=== PATIENT | female | born 1995 | race Caucasian/White ===

== ENCOUNTER 2022-12-19 05:45 | Inpatient (IN) | payer MEDICAID, SELFPAY ==
[2022-12-19] VITALS (26 sets, daily range): BP systolic 102–134; BP diastolic 55–84; PULSE 62–93; RESP 16–18; TEMP 36.4–36.8; O2SAT 97–99; BMI 36.7
[2022-12-19] MEDS: dextrose 5%-lactated ringers 1,000 ML 125 ML IV (06:11)
[2022-12-19 06:17] LABS: Basophils # 0.1 10^3/uL (0.0-0.1); Basophils % 0.5 %; Eosinophils # 0.4 10^3/uL (0.0-0.8); Eosinophils % 2.4 %; Hematocrit 33.5 % (37.0-47.0); Hemoglobin 11.2 g/dL (11.5-15.3); Lymphocytes # 4.4 10^3/uL (0.8-4.8); Lymphocytes % 26.7 %; Mean Corpuscular HGB Conc 33.4 g/dL (30.0-36.0); Mean Corpuscular Hemoglobin 29.9 pg (28.0-34.0); Mean Corpuscular Volume 89.6 fl (81-99); Mean Platelet Volume 12.1 fL (7.4-10.4); Monocytes # 0.8 10^3/uL (0.2-0.9); Monocytes % 4.7 %; Neutrophils # 10.68 10^3/uL (1.8-7.7); Neutrophils % 65.2 %; Nucleated Red Blood Cells % 0 %; Platelet Count 392 10^3/cmm (130-400); Red Blood Count 3.74 10^6/uL (4.1-5.3); Red Cell Distribution Width 14.4 % (12.1-15.1); White Blood Count 16.4 10^3/uL (4.0-10.0)
[2022-12-19 06:28] LABS: Amphetamines Screen Urine Negative (Negative); Barbiturates Screen Urine Negative (Negative); Benzodiazepines Screen Urine Negative (Negative); Cocaine Screen Urine Negative (Negative); Opiate Screen Urine Negative (Negative); PCP Screen Urine Negative (Negative); THC Screen Urine Positive (Negative)
[2022-12-19 07:04] LABS: Slide Review Slide Review Perform
--- NOTE | 2022-12-19 08:24 | PM.OBGYHP ---
Providers/Chief Complaint Admitting Physician: Dr. 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 Patient has not had any complications during her . She has obtained adequate care records from previous provider showed normal labs. GBS was negative. Patient has no concerns today. Present Details : 4 Para: 3 Labs Rubella: Immune RPR: Negative GBS: Negative HBsAG: Negative Review of Systems General: Reports: 10 or more systems reviewed and unremarkable except in HPI and below Narrative: Patient feels movement, denies loss of fluid vaginal bleeding, or contractions. Vitals/I&O/Wt Last Vital Signs Temp 98.2 F 12/19/22 05:53 Pulse 74 12/19/22 08:08 Resp 17 12/19/22 07:22 BP 103/55 12/19/22 08:08 O2 Del Method Room Air 12/19/22 05:49 12/18/22 12/19/22 12/19/22 22:59 06:59 14:59 Intake Total 0.25 / 0.25 3.75 / 3.75 Balance 0.25 / 0.25 3.75 / 3.75 Weight last 48 hrs Weight 91.081 kg Physical Exam Const: COMMON NORMALS: no acute distress and healthy appearing HENMT: COMMON NORMALS: normocephalic and moist oral mucous membranes Chest: COMMONS NORMALS: normal inspection of the chest Resp: COMMON NORMALS: normal respiratory effort and No retractions Cardio: COMMON NORMALS: regular rate and regular rhythm GI: COMMON NORMALS: Normal to inspection, nondistended, normoactive bowel sounds present : COMMON NORMALS: Yes normal external appearance Extremity: COMMON NORMALS: normal to inspection and no clubbing, cyanosis or edema Neuro: COMMON NORMALS: moves all extremities Psych: COMMON NORMALS: mental status grossly normal Skin: COMMON NORMALS: no rashes or lesions noted Data 12/19/22 06:00 A&P Assessment and plan (1) Term : Plan to proceed with induction of labor with Pitocin. Proceed with routine labor management. Attestations Medical Necessity Statement*: Anticipate at least a 1 midnight stay. Coding Level of Care Code Acute Code for Chg Fwd Diagnoses Term Z34.90
[2022-12-19] MEDS: fentaNYL 50 mcg/mL INJ 2mL IVP (09:03)
[2022-12-19] MEDS: miSOPROStol 200 mcg Tablet 800 MCG PR (09:50)
--- NOTE | 2022-12-19 10:01 | PM.DELIVERY ---
Delivery Note: Date of delivery: December 19, 2022 Pre-delivery diagnoses: TIUP Post-delivery diagnoses: same, viable male Procedure: Op report anesthesia: None Estimated blood loss (mL): 400 Pre-Delivery Course: This is a 27 y/o that presented for IOL due to logistics. She was started on Pitocin and quickly started to have contractions. AROM was performed AROM was performed around 815 with clear fluid. She then quickly progressed complete over the next 1.5 hours. Delivery: Once the patient was complete the patient proceeded to push with contractions and delivered a viable infant male without issues. Infant was placed on maternal stomach and after a brief delay cord was clamped and cut. Delivery of placenta occurred without incident. Continued bleeding was noted so 100 milligrams of Cytotec was given rectally. Review of the perineum did not demonstrate any significant tear. After the procedure all equipment was accounted for. Post-Delivery Status: Stable History History History 4 Term 4 Miscarriages/Ectopic 0 Living Children 4 A&P Assessment and plan (1) Vaginal delivery: Proceed with routine post care Coding Level of Care Code Acute Code for Chg Fwd Diagnoses Vaginal delivery O80
[2022-12-19] MEDS: acetaminophen 325 mg Tablet 650 MG PO (11:35)
[2022-12-19] MEDS: benzocaine-menthol 78 gm Canister 1 SPRAY TOPICAL (12:14)
[2022-12-19] MEDS: HYDROcodone-acetaminophen 5-325 mg Tablet PO (14:06)
[2022-12-19] MEDS: ibuprofen 800 mg tablet PO (18:14)
[2022-12-19 22:12] LABS: Hematocrit 31.1 % (37.0-47.0); Hemoglobin 10.4 g/dL (11.5-15.3); Mean Corpuscular HGB Conc 33.4 g/dL (30.0-36.0); Mean Corpuscular Hemoglobin 29.7 pg (28.0-34.0); Mean Corpuscular Volume 88.9 fl (81-99); Mean Platelet Volume 12.2 fL (7.4-10.4); Platelet Count 374 10^3/cmm (130-400); Red Cell Distribution Width 14.2 % (12.1-15.1); White Blood Count 21.2 10^3/uL (4.0-10.0)
[2022-12-20] MEDS: HYDROcodone-acetaminophen 5-325 mg Tablet PO (00:16)
--- NOTE | 2022-12-20 07:21 | PM.OBGYDC ---
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 Patient was started on Pitocin to initiate contractions. Patient proceeded into a normal contraction pattern. AROM was performed and within an hour and a half the patient was fully dilated and delivered a viable infant male vaginally without incident. Patient did receive 1 dose of Cytotec after delivery to help with bleeding. Patient had no tears that needed repaired in a care was unremarkable. Information Peripartum Data: Infant Delivery Method: Vaginal Laceration description: None Episiotomy description: None complications: none Physical Exam Const: COMMON NORMALS: no acute distress and healthy appearing HENMT: COMMON NORMALS: normocephalic and moist oral mucous membranes HEAD & SCALP: normocephalic Chest: COMMONS NORMALS: normal inspection of the chest Resp: COMMON NORMALS: normal respiratory effort and No retractions Cardio: COMMON NORMALS: regular rate and regular rhythm RATE: regular rate RHYTHM: regular rhythm GI: COMMON NORMALS: Normal to inspection, nondistended, normoactive bowel sounds present : COMMON NORMALS: Yes normal external appearance Extremity: COMMON NORMALS: normal to inspection and no clubbing, cyanosis or edema Neuro: COMMON NORMALS: moves all extremities Psych: COMMON NORMALS: mental status grossly normal Skin: COMMON NORMALS: no rashes or lesions noted GENERAL SKIN EXAM: no rashes or lesions noted History History History 4 Term 4 Miscarriages/Ectopic 0 Living Children 4 Discharge Data Studies Completed and Pending Laboratory Results WBC 21.2 10^3/uL (4.0-10.0) H 12/19/22 21:47 RBC 3.50 10^6/uL (4.1-5.3) L 12/19/22 21:47 Hgb 10.4 g/dL (11.5-15.3) L 12/19/22 21:47 Hct 31.1 % (37.0-47.0) L 12/19/22 21:47 MCV 88.9 fl (81-99) 12/19/22 21:47 MCH 29.7 pg (28.0-34.0) 12/19/22 21:47 MCHC 33.4 g/dL (30.0-36.0) 12/19/22 21:47 RDW 14.2 % (12.1-15.1) 12/19/22 21:47 Plt Count 374 10^3/cmm (130-400) 12/19/22 21:47 MPV 12.2 fL (7.4-10.4) H 12/19/22 21:47 Neut % (Auto) 65.2 % 12/19/22 06:00 Lymph % (Auto) 26.7 % 12/19/22 06:00 [place] % (Auto) 4.7 % 12/19/22 06:00 Eos % (Auto) 2.4 % 12/19/22 06:00 Baso % (Auto) 0.5 % 12/19/22 06:00 Neut # (Auto) 10.68 10^3/uL (1.8-7.7) H 12/19/22 06:00 Lymph # (Auto) 4.4 10^3/uL (0.8-4.8) 12/19/22 06:00 [place] # (Auto) 0.8 10^3/uL (0.2-0.9) 12/19/22 06:00 Eos # (Auto) 0.4 10^3/uL (0.0-0.8) 12/19/22 06:00 Baso # (Auto) 0.1 10^3/uL (0.0-0.1) 12/19/22 06:00 Nucleated RBC % (auto) 0 % 12/19/22 06:00 Nucleated RBCs # 0.0 /100WBC 12/19/22 06:00 Urine Opiates Screen Negative ng/mL (Negative) 12/19/22 06:00 Ur Barbiturates Screen Negative ng/mL (Negative) 12/19/22 06:00 Ur Phencyclidine Scrn Negative ng/mL (Negative) 12/19/22 06:00 Ur Amphetamines Screen Negative ng/mL (Negative) 12/19/22 06:00 U Benzodiazepines Scrn Negative ng/mL (Negative) 12/19/22 06:00 Urine Cocaine Screen Negative ng/mL (Negative) 12/19/22 06:00 U Marijuana (THC) Screen Positive ng/mL (Negative) H 12/19/22 06:00 Vitals Last Vital Signs Temp 97.6 F 12/19/22 16:45 Pulse 71 12/19/22 20:15 Resp 16 12/19/22 20:15 BP 125/59 12/19/22 20:15 Pulse Ox 97 12/19/22 20:15 O2 Del Method Room Air 12/19/22 20:15 Discharge Plan Discharge Patient Disposition: Home Condition: Stable Discharge Orders: Discharge Order (Routine); Ordered 12/20/22 Ordered By: Jasson Knox Referrals: Jasson Knox MD [Physician] - 6 Weeks Discharge Diet: Usual diet Discharge Activity: Limit activity as instructed Patient Instructions: Depression (DC), Bleeding (DC), Preeclampsia and Eclampsia After Delivery (GEN), Hemorrhage (DC), OB Discharge Report, OB Food/Drug Interaction Guide, OB Care at Home, Opioid Safety, OB Home Care, OB Proud Parent Packet, OB Vaginal Deliveries Discharge 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
[2022-12-20] MEDS: prenatal vitamin Capsule 1 CAP PO (08:34)
[2022-12-20] MEDS: ibuprofen 800 mg tablet PO (08:34)
[2022-12-20 10:15] VITALS: BP 135/76; PULSE 71; RESP 16; TEMP 36.7; O2SAT 98
== END 2022-12-20 10:20 | disposition home or self-care (01) | DRG 807 ==
LOC: OPOB 10:15 → OBGYN 10:16
PROVIDERS: Admitting Provider Family Medicine; Visit Provider Family Medicine
DX: O80 Encounter for full-term uncomplicated delivery (principal); Z37.0 Single live birth; Z3A.39 39 weeks gestation of pregnancy
CPT/HCPCS: 36415; 59025; 59409; 80306; 85025; 85027; 96374; J3010; J7040; J7121

== ENCOUNTER → 2024-05-05 08:33 | Outpatient (BNVA) | payer MEDICAID, SELFPAY | PROVIDERS: Visit Provider Nurse Practitioner Women's Health | DX: N92.6 Irregular menstruation, unspecified (principal) | CPT/HCPCS: 81025 ==

== ENCOUNTER 2024-05-06 17:17 | Emergency (ER) | payer MEDICAID, SELFPAY ==
[2024-05-06 17:25] VITALS: BP 129/89; PULSE 105; RESP 16; TEMP 36.8; O2SAT 97; BMI 29.0
[2024-05-06 17:44] LABS: Basophils # 0.1 10^3/uL (0.0-0.1); Basophils % 0.9 %; Eosinophils # 0.4 10^3/uL (0.0-0.8); Eosinophils % 2.9 %; Lymphocytes # 3.9 10^3/uL (0.8-4.8); Lymphocytes % 32.6 %; Mean Corpuscular HGB Conc 34.7 g/dL (30-55); Mean Corpuscular Hemoglobin 30.8 pg (27-33); Mean Platelet Volume 11.7 fL (7.4-10.4); Monocytes # 0.4 10^3/uL (0.2-0.9); Monocytes % 3.6 %; Neutrophils # 7.16 10^3/uL (1.8-7.7); Neutrophils % 59.7 %; Nucleated Red Blood Cells % 0 %; Platelet Count 320 10^3/cmm (157-399); Red Blood Count 4.83 10^6/uL (3.85-5.65); Red Cell Distribution Width 12.4 % (12.1-15.1); White Blood Count 11.99 10^3/uL (3.29-11.43)
--- NOTE | 2024-05-06 17:44 | ED_ITS ---
Documented by User: Tommie Mackey DO 05/07/24 05:54 HPI - 2 General: Chief complaint: Vaginal Bleeding Stated complaint: 6wks vaginal bleeding Time Seen by Provider: 05/06/24 17:36 History of Present Illness: 28-year-old female at approximatel y 5 to 6 weeks . She is complaining of vaginal bleeding. She also has some nausea and vomiting she associates with morning sickness. No fever sweats chills no dysuria urgency or frequency no diarrhea. Bleeding started within the last hour. Patient states she has not otherwise been sick she has had quite a bit of morning sickness so far with this but she is not having nausea or vomiting now. She has noticed blood mostly when she wipes she is not really needed to wear a pad since this began. She had told the nurse that they had told her she was 5 to 6 weeks along although she places her LMP sometime in early February. When I reviewed the note from the midlevel at the OB office they had calculated her LMP as March 22. Associated symptoms: Deny abdominal pain or dysuria Related Data Home Medications Medication Instructions Recorded Confirmed No Known Home Medications 05/05/24 05/05/24 Allergies Allergy/AdvReac Type Severity Reaction Status Date / Time No Known Allergies Allergy Unverified 05/05/24 13:14 Review of Systems 2 Const: Denies: fever(s) or chills Card: Denies: chest pain Resp: Denies: dyspnea GI: Denies: abdominal pain : Reports: vaginal bleeding; Denies: dysuria, urinary frequency or urinary urgency Musc: Denies: neck pain or back pain Skin/Breast: Denies: rash PFSH ED 2 PFSH: Medical History No pertinent past medical history neghx: htn,dm,thyroid,dvt/pe PCP: None Surgical History No pertinent past surgical history Family History Denies family history of Colon cancer Ovarian cancer Diabetes Heart disease Hyperlipidemia Breast cancer Hypertension Uterine cancer Thyroid disease Stroke Social History Smoking and tobacco/nicotine status: never used tobacco/nicotine Physical Exam 2 Const: COMMON NORMALS: no acute distress GENERAL APPEARANCE: cooperative and comfortable ORIENTATION/CONSCIOUSNESS: Yes awake, Yes oriented to person, Yes oriented to place and Yes oriented to time HENMT: COMMON NORMALS: normocephalic, atraumatic and hearing grossly normal bilaterally HEAD & SCALP: normocephalic and atraumatic Resp: COMMON NORMALS: normal respiratory effort, No retractions, No use of accessory muscles and clear to auscultation bilaterally AUSCULTATION: clear to auscultation bilaterally Cardio: COMMON NORMALS: regular rate, regular rhythm and No murmurs present (Cardio) RATE: regular rate RHYTHM: regular rhythm GI: COMMON NORMALS: Soft to palpation and No hepatosplenomegaly present A USCULTATION: Yes normoactive bowel sounds PALPATION: Yes Soft to palpation, No Tenderness to palpation present (GI), No Guarding due to palpation present (GI) and Yes No hepatosplenomegaly present Extremity: COMMON NORMALS: normal to inspection, capillary refill normal, no clubbing, cyanosis or edema, no calf tenderness and no pedal edema Neuro: SENSORIUM/ORIENTATION: Yes oriented to person, Yes oriented to place and Yes oriented to time Skin: COMMON NORMALS: no rashes or lesions noted GENERAL SKIN EXAM: no rashes or lesions noted Course 2 Vital Signs: Vital signs: Vital Signs Temperature 98.2 F 05/06/24 17:25 Pulse Rate 87 05/06/24 20:16 Respiratory Rate 16 05/06/24 20:16 Blood Pressure 108/69 05/06/24 20:16 Pulse Oximetry 97 05/06/24 20:16 Oxygen Delivery Me thod Room Air 05/06/24 19:34 MDM - OB/Uterine Contractions Medical Decision Making Care signed out to Dr. Wheeler at change of shift. See final notes for diagnosis and disposition. Patient presents emerged part with complaint of bleeding in . hCG is little over 10,000. Ultrasound shows gestational sac at 7 weeks but no pole or heart rate. Suspect threatened or incomplete versus blighted ovum. Discussed findings with patient. Patient to follow-up with [facility] for repeat hCG and further follow-up. Patient is Rh+ so will not need RhoGAM. Patient is otherwise stable upon discharge. Lab Data 05/06/24 17:33 Radiology Impressions Ultrasound 05/06/24 18:24 IMPRESSION: A gestational sac and yolk sac is seen within the uterus. No pole or heart rate seen at this time which may be due to early gestation. Recommend clinical correlation with beta HCG. Laboratory Results WBC 11.99 10^3/uL (3.29-11.43) H 05/06/24 17:33 RBC 4.83 10^6/uL (3.85-5.65) 05/06/24 17:33 Hgb 14.90 g/dL (11.27-16.99) 05/06/24 17:33 Hct 43.0 % (36-47) 05/06/24 17:33 MCV 89.0 fl (85-98) 05/06/24 17:33 MCH 30.8 pg (27-33) 05/06/24 17: MCHC 34.7 g/dL (30-55) 05/06/24 17:33 RDW 12.4 % (12.1-15.1) 05/06/24 17:33 Plt Count 320 10^3/cmm (157-399) 05/06/24 17:33 MPV 11.7 fL (7.4-10.4) H 05/06/24 17:33 Neut % (Auto) 59.7 % 05/06/24 17:33 Lymph % (Auto) 32.6 % 05/06/24 17:33 [place] % (Auto) 3.6 % 05/06/24 17:33 Eos % (Auto) 2.9 % 05/06/24 17:33 Baso % (Auto) 0.9 % 05/06/24 17:33 Neut # (Auto) 7.16 10^3/uL (1.8-7.7) 05/06/24 17:33 Lymph # (Auto) 3.9 10^3/uL (0.8-4.8) 05/06/24 17:33 [place] # (Auto) 0.4 10^3/uL (0.2-0.9) 05/06/24 17:33 Eos # (Auto) 0.4 10^3/uL (0.0-0.8) 05/06/24 17:33 Baso # (Auto) 0.1 10^3/uL (0.0-0.1) 05/06/24 17:33 Nucleated RBC % (auto) 0 % 05/06/24 17:33 Nucleated RBCs # 0.0 /100WBC 05/06/24 17:33 Ser , Semi-Qnt 99411.00 mIU/mL 05/06/24 17:33 Blood Type B Positive 05/06/24 17:33 Rho(D) Type Rh positive 05/06/24 17:33 Antibody Screen Negative 05/06/24 17:33 Discharge Plan Discharge Patient Disposition: Home Clinical Impression: Threatened Condition: Stable Prescriptions: No Action No Known Home Medications Discharge Orders: Discharge ED (Routine); Ordered 05/06/24 Ordered By: Ronald Wheeler Patient Instructions: Opioid Safety, Pain Management Activity Restrictions/Additional Instructions: Follow-up with [facility] in the next 48 hours for repeat hCG Coding Level of Care Code ED Prosthetic Dentist for Chg Fwd Documented by User: Ronald Wheeler MD 05/06/24 20:00 HPI - 2 General: Chief complaint: Vaginal Bleeding Stated complaint: 6wks vaginal bleeding Time Seen by Provider: 05/06/24 17:36 Related Data Home Medications Medication Instructions Recorded Confirmed No Known Home Medications 05/05/24 05/05/24 Allergies Allergy/AdvReac Type Severity Reaction Status Date / Time No Known Allergies Allergy Unverified 05/05/24 13:14 PFSH ED 2 PFSH: Medical History No pertinent past medical history neghx: htn,dm,thyroid,dvt/pe PCP: None Surgical History No pertinent past surgical history Family History Denies family history of Colon cancer Ovarian cancer Diabetes Heart disease Hyperlipidemia Breast cancer Hypertension Uterine cancer Thyroid disease Stroke Social History Smoking and tobacco/nicotine status: never used tobacco/nicotine Course 2 Vital Signs: Vital signs: Vital Signs Temperature 98.2 F 05/06/24 17:25 Pulse Rate 87 05/06/24 20:16 Respiratory Rate 16 05/06/24 20:16 Blood Pressure 108/69 05/06/24 20:16 Pulse Oximetry 97 05/06/24 20:16 Oxygen Delivery Me thod Room Air 05/06/24 19:34 MDM - OB/Uterine Contractions Medical Decision Making Patient presents emerged part with complaint of bleeding in . hCG is little over 10,000. Ultrasound shows gestational sac at 7 weeks but no pole or heart rate. Suspect threatened or incomplete versus blighted ovum. Discussed findings with patient. Patient to follow-up with [facility] for repeat hCG and further follow-up. Patient is Rh+ so will not need RhoGAM. Patient is otherwise stable upon discharge. Lab Data 05/06/24 17:33 Radiology Impressions Ultrasound 05/06/24 18:24 IMPRESSION: A gestational sac and yolk sac is seen within the uterus. No pole or heart rate seen at this time which may be due to early gestation. Recommend clinical correlation with beta HCG. Laboratory Results WBC 11.99 10^3/uL (3.29-11.43) H 05/06/24 17:33 RBC 4.83 10^6/uL (3.85-5.65) 05/06/24 17:33 Hgb 14.90 g/dL (11.27-16.99) 05/06/24 17:33 Hct 43.0 % (36-47) 05/06/24 17:33 MCV 89.0 fl (85-98) 05/06/24 17:33 MCH 30.8 pg (27-33) 05/06/24 17:33 MCHC 34.7 g/dL (30-55) 05/06/24 17:33 RDW 12.4 % (12.1-15.1) 05/06/24 17:33 Plt Count 320 10^3/cmm (157-399) 05/06/24 17:33 MPV 11.7 fL (7.4-10.4) H 05/06/24 17:33 Neut % (Auto) 59.7 % 05/06/24 17:33 Lymph % (Auto) 32.6 % 05/06/24 17:33 [place] % (Auto) 3.6 % 05/06/24 17:33 Eos % (Auto) 2.9 % 05/06/24 17:33 Baso % (Auto) 0.9 % 05/06/24 17:33 Neut # (Auto) 7.16 10^3/uL (1.8-7.7) 05/06/24 17:33 Lymph # (Auto) 3.9 10^3/uL (0.8-4.8) 05/06/24 17:33 [place] # (Auto) 0.4 10^3/uL (0.2-0.9) 05/06/24 17:33 Eos # (Auto) 0.4 10^3/uL (0.0-0.8) 05/06/24 17:33 Baso # (Auto) 0.1 10^3/uL (0.0-0.1) 05/06/24 17:33 Nucleated RBC % (auto) 0 % 05/06/24 17:33 Nucleated RBCs # 0.0 /100WBC 05/06/24 17:33 Ser , Semi-Qnt 10493.00 mIU/mL 05/06/24 17:33 Blood Type B Positive 05/06/24 17:33 Rho(D) Type Rh positive 05/06/24 17:33 Antibody Screen Negative 05/06/24 17:33 All radiology interpretation(s) finalized by discharge Discharge Plan Discharge Patient Disposition: Home Clinical Impression: Threatened Condition: Stable Prescriptions: No Action No Known Home Medications Discharge Orders: Discharge ED (Routine); Ordered 05/06/24 Ordered By: Ronald Wheeler Patient Instructions: Opioid Safety, Pain Management Activity Restrictions/Additional Instructions: Follow-up with [facility] in the next 48 hours for repeat hCG Coding Level of Care Code ED Prosthetic Dentist for Kelving Moises
[2024-05-06 18:13] VITALS: BP 111/67; PULSE 90; O2SAT 98
--- NOTE | 2024-05-06 18:24 | USR_ITS ---
PROCEDURE INFORMATION: Exam: US First Trimester, Transabdominal and US , Transvaginal Exam date and time: 05/06/2024 6:38 PM Age: 28 years old Clinical indication: Lmp or gestational age (in weeks): 12w 1 d by reported lmp of 02/11/2024; Antepartum complications; ; Patient HX: G5-p4-a0-l4 [place] [address] with vaginal bleeding x 1 hour. ; Additional info: Vaginal bleed LABS AND CLINICAL REPORTS: Choriogonadotropin in serum (Serum HCG): 25739 mIU/mL Last menstrual period start date: 02/11/2024 Gestational age (Established): 12 w 1 d Estimated due date (Established): 11/17/2024 TECHNIQUE: Imaging protocol: Real-time transabdominal obstetrical ultrasound of the maternal pelvis and a first trimester , less than 14 weeks 0 days, with image documentation. Transvaginal imaging was used for better evaluation of the fetus, adnexa, and/or cervix. COMPARISON: No relevant prior studies available. FINDINGS: GESTATION: Gestation: Intrauterine gestation is visualized. No pole is visualized. Yolk sac is visualized. Embryonic/ heart rate: Not seen at this time. Extra-embryonic membranes/Placenta: Unremarkable. No subchorionic bleed. Amniotic/Chorionic fluid: Amniotic and extra-amniotic fluid are normal for gestational age. BIOMETRY: Gestational age (AUA): 7 w 1 d Estimated due date (AUA): 12/22/2024 Mean sac diameter: 2.22 cm. MATERNAL: Uterus: Uterus measures 9.75 cm x 5.88 cm x 5.45 cm. Cervix: Endocervical canal is closed. Right ovary/adnexa: Right ovary measures 3.2 cm x 2.8 cm x 1.9 cm. Right ovarian volume is 9.1 mL. 1.3 cm corpus luteum cyst. Left ovary/adnexa: Left ovary measures 2.3 cm x 3 cm x 1.7 cm. Left ovarian volume is 6.1 mL. Intraperitoneal space: No intraperitoneal free fluid. US/US OB <= 14 weeks fetus [id number] IMPRESSION: A gestational sac and yolk sac is seen within the uterus. No pole or heart rate seen at this time which may be due to early gestation. Recommend clinical correlation with beta HCG.
[2024-05-06 19:15] VITALS: BP 104/65; PULSE 97; RESP 16; O2SAT 85
[2024-05-06 19:34] VITALS: PULSE 81; RESP 16; O2SAT 95
[2024-05-06 20:00] VITALS: BP 108/68; PULSE 85; RESP 15; O2SAT 97
[2024-05-06 20:16] VITALS: BP 108/69; PULSE 87; RESP 16; O2SAT 97
== END 2024-05-06 20:17 | disposition home or self-care (01) ==
PROVIDERS: Emergency Medicine; Emergency Provider Emergency Medicine
DX: O20.0 Threatened abortion (principal); Z3A.01 Less than 8 weeks gestation of pregnancy
CPT/HCPCS: 36415; 76801; 84702; 85025; 86850; 86900; 99284

== ENCOUNTER 2024-05-09 08:35 | Day surgery (SDC) | payer MEDICAID, SELFPAY ==
[2024-05-09] VITALS (11 sets, daily range): BP systolic 90–129; BP diastolic 52–72; PULSE 69–100; RESP 11–20; TEMP 36.4–36.6; O2SAT 97–100; BMI 28.7
--- NOTE | 2024-05-09 08:59 | ED_ITS ---
HPI - General Adult 2 General: Chief complaint: Vaginal Bleeding Stated complaint: Heavy Vaginal bleeding Time Seen by Provider: 05/09/24 08:43 Source: patient Mode of arrival: ambulatory Limitations: no limitations History of Present Illness: 28-year-old female who currently pregnan t she is seen here 3 days ago and was diagnosed with widely low-lying versus unlikeliness. She states she started having bleeding last night with heavy bleeding this morning and passing clots she been having some abdominal cramping she denies any lightheadedness denies any fevers. Associated symptoms: Deny chest pain, dyspnea, headache(s), nausea, rash or vomiting Related Data Home Medications Medication Instructions Recorded Confirmed No Known Home Medications 05/05/24 05/05/24 Allergies Allergy/AdvReac Type Severity Reaction Status Date / Time No Known Allergies Allergy Verified 05/09/24 08:49 Review of Systems 2 Const: Denies: fever(s), chills, body aches or change in appetite ENMT: Denies: throat pain or dental pain Card: Denies: chest pain Resp: Denies: dyspnea GI: Denies: abdominal pain, nausea, vomiting or diarrhea : Reports: vaginal bleeding; Denies: dysuria Musc: Denies: neck pain or back pain Skin/Breast: Denies: rash Neuro: Denies: headache(s) PFSH ED 2 PFSH: Medical History No pertinent past medical history neghx: htn,dm,thyroid,dvt/pe PCP: None Surgical History No pertinent past surgical history Family History Denies family history of Colon cancer Ovarian cancer Diabetes Heart disease Hyperlipidemia Breast cancer Hypertension Uterine cancer Thyroid disease Stroke Social History Smoking and tobacco/nicotine status: never used tobacco/nicotine Physical Exam 2 Const: COMMON NORMALS: no acute distress, patient oriented x3 and healthy appearing HENMT: COMMON NORMALS: normocephalic and atraumatic HEAD & SCALP: n ormocephalic and atraumatic Eye: COMMON NORMALS: Equal, round and reactive pupils present and EOMs intact bilaterally PUPIL: Yes Equal, round and reactive pupils present Neck/C-Spine: COMMON NORMALS: full ROM and supple Chest: COMMONS NORMALS: normal inspection of the chest Resp: COMMON NORMALS: normal respiratory effort Cardio: COMMON NORMALS: regular rate, regular rhythm and No murmurs present (Cardio) RATE: regular rate RHYTHM: regular rhythm GI: COMMON NORMALS: Normal to inspection, nondistended, normoactive bowel sounds present, Soft to palpation, non-tender and no masses PALPATION: Yes Soft to palpation : OTHER: Multiple clots on vaginal bleeding Extremity: COMMON NORMALS: normal to inspection and full ROM Neuro: COMMON NORMALS: patient oriented x3, moves all extremities and no focal motor deficits Psych: COMMON NORMALS: mental status grossly normal, Normal thought process present and cooperative THOUGHT PROCESS: Normal thought process present Skin: COMMON NORMALS: no rashes or lesions noted and no wounds GENERAL SKIN EXAM: no rashes or lesions noted Course 2 Vital Signs: Vital signs: Vital Signs Pulse Rate 100 05/09/24 08:49 Respiratory Rate 18 05/09/24 08:49 Blood Pressure 129/72 05/09/24 08:49 Pulse Oximetry 98 05/09/24 08:49 [facility] - General Adult Medical Decision Making Patient presents female with a miscarriage she is continuing heavy bleeding even after pulling clots from the cervix and given her vasopressors daughter spoke to [facility] Dr. Power who is taking patient for D&C. Medical Records I reviewed the patient's medical records. Lab Data I reviewed the patient's lab results. 05/09/24 11:10 Laboratory Results WBC 10.52 10^3/uL (3.29-11.43) 05/09/24 09:04 RBC 3.89 10^6/uL (3.85-5.65) 05/09/24 09:04 Hgb 10.70 g/dL (11.27-16.99) L 05/09/24 11:10 Hct 31.6 % (36-47) L 05/09/24 11:10 MCV 89.2 fl (85-98) 05/09/24 09:04 MCH 30.6 pg (27-33) 05/09/24 09:04 MCHC 34.3 g/dL (30-55) 05/09/24 09:04 RDW 12.5 % (12.1-15.1) 05/09/24 09:04 Plt Count 260 10^3/cmm (157-399) 05/09/24 09:04 MPV 11.8 fL (7.4-10.4) H 05/09/24 09:04 Neut % (Auto) 57.3 % 05/09/24 09:04 Lymph % (Auto) 32.7 % 05/09/24 09:04 [place] % (Auto) 4.5 % 05/09/24 09:04 Eos % (Auto) 4.3 % 05/09/24 09:04 Baso % (Auto) 1.0 % 05/09/24 09:04 Neut # (Auto) 6.04 10^3/uL (1.8-7.7) 05/09/24 09:04 Lymph # (Auto) 3.4 10^3/uL (0.8-4.8) 05/09/24 09:04 [place] # (Auto) 0.5 10^3/uL (0.2-0.9) 05/09/24 09:04 Eos # (Auto) 0.5 10^3/uL (0.0-0.8) 05/09/24 09:04 Baso # (Auto) 0.1 10^3/uL (0.0-0.1) 05/09/24 09:04 Nucleated RBC % (auto) 0 % 05/09/24 09:04 Nucleated RBCs # 0.0 /100WBC 05/09/24 09:04 Ser , Semi-Qnt 2688.00 mIU/mL 05/09/24 09:04 Blood Type B Positive 05/09/24 09:04 Rho(D) Type Rh positive 05/09/24 09:04 Antibody Screen Negative 05/09/24 09:04 All radiology interpretation(s) finalized by discharge Discharge Plan Discharge Patient Disposition: Admitted As Inpatient Clinical Impression: Vaginal bleeding, Missed Condition: Stable Coding Level of Care Code ED Hand Packer for Justice De Leon
[2024-05-09 09:11] LABS: Basophils # 0.1 10^3/uL (0.0-0.1); Eosinophils # 0.5 10^3/uL (0.0-0.8); Eosinophils % 4.3 %; Hematocrit 34.7 % (36-47); Lymphocytes # 3.4 10^3/uL (0.8-4.8); Lymphocytes % 32.7 %; Mean Corpuscular HGB Conc 34.3 g/dL (30-55); Mean Corpuscular Hemoglobin 30.6 pg (27-33); Mean Corpuscular Volume 89.2 fl (85-98); Mean Platelet Volume 11.8 fL (7.4-10.4); Monocytes # 0.5 10^3/uL (0.2-0.9); Monocytes % 4.5 %; Neutrophils # 6.04 10^3/uL (1.8-7.7); Neutrophils % 57.3 %; Nucleated Red Blood Cells % 0 %; Platelet Count 260 10^3/cmm (157-399); Red Blood Count 3.89 10^6/uL (3.85-5.65); Red Cell Distribution Width 12.5 % (12.1-15.1); White Blood Count 10.52 10^3/uL (3.29-11.43)
[2024-05-09] MEDS: miSOPROStol 200 mcg Tablet 800 MCG PR (09:46)
[2024-05-09 11:14] LABS: Hematocrit 31.6 % (36-47)
[2024-05-09] MEDS: morphine 4 mg/mL SDV 1 mL IM (12:29)
[2024-05-09] MEDS: sodium chloride 0.9% 1,000 ML 999 ML IV ×2 (12:31→12:48)
--- NOTE | 2024-05-09 13:40 | P.HP_ITS ---
Providers/Chief Complaint 2 Admitting Physician: Neftali Power MD Primary MACHINE ROOM ENGINEER: Rajesh Church MD Chief Complaint: Heavy Vaginal bleeding HPI MACHINE ROOM ENGINEER History of Present Illness Michelle Wells is a 28 year old female LMP March 12, 2024 had ob sono done May 06, 2024 which showed intrauterine gestational sac but no pole presents to ER c/o heavy vaginal bleeding, passing clots, with dizziness Present Details Date of Last Menstrual Period: 02/14/24 Calculated Date of Delivery: 11/20/24 Gestational Age Based on Last Menstrual Period: 12 Medications/Allergies Home Medications Medication Instructions Recorded Confirmed Last Taken Type No Known Home Medications 05/05/24 05/05/24 Unknown History Allergies Allergy/AdvReac Type Severity Reaction Status Date / Time No Known Allergies Allergy Verified 05/09/24 08:49 PFSH MACHINE ROOM ENGINEER 2 PFSH: Medical History No pertinent past medical history neghx: htn,dm,thyroid,dvt/pe PCP: None Surgical History No pertinent past surgical history Family History Denies family history of Colon cancer Ovarian cancer Diabetes Heart disease Hyperlipidemia Breast cancer Hypertension Uterine cancer Thyroid disease Stroke Social History Smoking and tobacco/nicotine status: never used tobacco/nicotine History History History 2 4 Term 4 0 Miscarriages/Ectopic 0 Living Children 4 Vitals/I&O/Wt Last Vital Signs Temp 97.9 F 05/09/24 13:24 Pulse 80 05/09/24 13:24 Resp 18 05/09/24 13:24 BP 103/71 05/09/24 13:24 Pulse Ox 100 05/09/24 13:24 O2 Del Method Room Air 05/09/24 13:24 05/08/24 05/09/24 05/09/24 22:59 06:59 14:59 Intake Total 283.05 / 283.05 Balance 283.05 / 283.05 Weight last 48 hrs Weight 162 lb Physical Exam 2 Narrative: General: pale, awake, alert, appropriate VS + orthostatic changes Lungs: clear Cor: RRR Abd: soft, nontender Perineum: + clots at perineum Ext: normal Data 05/09/24 11:10 Results Labs OB ([facility]): 2 Blood Type B Positive 05/09/24 Antibody Screen Negative 05/09/24 Hct 31.6 % (36-47) L 05/09/24 Hgb 10.70 g/dL (11.27-16.99) L 05/09/24 Rho(D) Type Rh positive 05/09/24 Plt Count 260 10^3/cmm (157-399) 05/09/24 Ser , Semi-Qnt 2688.00 mIU/mL 05/09/24 HCG, Qual Positive (Negative) H 05/05/24 Urine Opiates Screen Negative ng/mL (Negative) 12/19/22 Ur Barbiturates Screen Negative ng/mL (Negative) 12/19/22 Ur Phencyclidine Scrn Negative ng/mL (Negative) 12/19/22 Ur Amphetamines Screen Negative ng/mL (Negative) 12/19/22 U Benzodiazepines Scrn Negative ng/mL (Negative) 12/19/22 Urine Cocaine Screen Negative ng/mL (Negative) 12/19/22 U Marijuana (THC) Screen Positive ng/mL (Negative) H A&P Assessment and plan (1) Incomplete spontaneous : early gestation blighted ovum spontaneous incomplete heavy vaginal bleeding recommend suction curettage of uterus procedure and risks explained to patient risks include, but not limited to, infection, bleeding, injury to internal organs, anesthesia, need for repeat curettage, blood transfusions patient understands and wants to proceed Attestations 2 Medical Necessity Statement*: patient with incomplete spontaneous and heavy vaginal bleeding Coding Level of Care Code Acute Code for Chg Fwd Diagnoses Incomplete spontaneous O03.4 Time Spent (min) 60
--- NOTE | 2024-05-09 13:40 | P.ANESASSM_ITS ---
Pre-Anesthetic Assessment Height/Weight: Height 1.6 m Weight 73.482 kg Temp Pulse Resp BP Pulse Ox O2 Del Method 97.9 F 80 18 103/71 100 Room Air 05/09/24 13:24 05/09/24 13:24 05/09/24 13:24 05/09/24 13:24 05/09/24 13:24 05/09/24 13:24 Operation Date: 05/09/24 14:00 Proposed Procedures p Dilation And Curettage w/ Suction(Not Applicable) - Neftali Power MD Was Beta Gianfranco taken within 24 hours: N/A Social Tobacco and No alcohol Exam alert, oriented x 3, clear to auscultation bilaterally and regular rate & rhythm Airway Submandibular: within normal limits Cervical ROM: within normal limits Mallampati: Class II History/ROS No significant history except as noted Anesthetic Plan ASA status: 2E Anesthesia: General Medications/Allergies Home Medications Medication Instructions Recorded Confirmed Last Taken Type No Known Home Medications 05/05/24 05/05/24 Unknown History Allergies Allergy/AdvReac Type Severity Reaction Status Date / Time No Known Allergies Allergy Verified 05/09/24 08:49 Current Medications Generic Name Dose Route Start Last Admin Trade Name Freq PRN Reason Stop Dose Admin Sodium Chloride 1,000 mls @ 999 mls/hr 05/09/24 12:30 05/09/24 12:48 Sodium Chloride 0.9% IV 05/09/24 14:30 999 mls/hr .Q1H1M NUVIA Administration PFSH Anesthesia Medical History No pertinent past medical history neghx: htn,dm,thyroid,dvt/pe PCP: None Surgical History No pertinent past surgical history Family History Denies family history of Colon cancer Ovarian cancer Diabetes Heart disease Hyperlipidemia Breast cancer Hypertension Uterine cancer Thyroid disease Stroke Social History Smoking and tobacco/nicotine status: never used tobacco/nicotine Female Reproductive History Date of last menstrual period: 02/14/24 Data Anesthesia 05/09/24 11:10 Short CBC 05/09/24 05/09/24 Range/Units 09:04 11:10 WBC 10.52 (3.29-11.43) 10^3/uL Hgb 11.90 10.70 L (11.27-16.99) g/dL Hct 34.7 L 31.6 L (36-47) % MCV 89.2 (85-98) fl Plt Count 260 (157-399) 10^3/cmm Neut % (Auto) 57.3 % Neut # (Auto) 6.04 (1.8-7.7) 10^3/uL Blood Bank 05/09/24 09:04 Blood Type B Positive Rho(D) Type Rh positive Antibody Screen Negative Cardiac Studies: 2 No Data to Display
--- NOTE | 2024-05-09 13:44 | PC.NURSE ---
1315 - retrieved pt from ER 16 - pts at side - jewelry removed per pt and given to
--- NOTE | 2024-05-09 13:44 | W.PM.OPSUD ---
Surgery/Procedure H&P Update DATE OF PROCEDURE: May 09, 2024 DATE H&P PERFORMED: 05/09/24 H&P UPDATE INFORMATION: I have reviewed H&P completed within last 30 days, I have examined patient prior to procedure and No changes to prior documentation PLANNED PROCEDURE: Operation Date: 05/09/24 14:00 Proposed Procedures p Dilation And Curettage w/ Suction(Not Applicable) - Neftali Power MD
--- NOTE | 2024-05-09 15:08 | SUR.PHASEII ---
pt understands upon discharge to call office for follow up appt - pt verbalizes she has a follow up appt on 05/11
--- NOTE | 2024-05-09 15:18 | PM.OP ---
Operative Report Date of procedure: May 09, 2024 Pre-op diagnosis: incomplete spontaneous Post-op diagnosis: same Post-op findings: uterus sounded to 11 cm cervix widely open gestational sac at os products of conception Procedure done: suction curettage of uterus Implants: none Specimens removed/disposition: products of conception Surgeon: Neftali Power MD Anesthesia: General Estimated blood loss (mL): 50 Complications: none Findings: uterus sounded to 11 cm cervix widely open gestational sac at os products of conception Condition: stable Disposition: PACU Brief History: 28 y.o. with early gestation, blighted ovum presented with heavy vaginal bleeding with clots Procedure: Informed consent signed The patient was taken to the operating room. General anesthesia was induced. The patient was placed in dorsolithotomy position. The perineum was prepped and draped in the usual fashion. A bivalve speculum was placed in the vagina. A gestational sac was seen at the cervical os, which was widely open. The gestational sac was removed. The anterior lip of the cervix was grasped with a ring forcep. The uterus was sounded to 11 cm. A #10 curved suction curette was used to empty the contents of the uterus. Products of conception were obtained and sent to pathology. A sharp curette, followed again by the suction curette, were used to evacuate the uterus. No bleeding was seen. All instruments were then removed from the uterus, cervix and vagina. No bleeding was seen from the cervix. The patient was then placed supine, awakened, and taken to the recovery room. Postop condition: stable EBL: 50 cc Complications: none Sponge/instruments counts correct x two
--- NOTE | 2024-05-10 12:40 | ANE.PACU2 ---
Inpatient post-anesthesia follow up: Airway intact: Yes Vital signs: Temperature 97.6 F Pulse Rate 69 Respiratory Rate 18 Blood Pressure 94/52 Pulse Oximetry 100 Oxygen Delivery Me thod Room Air Oxygen Flow Rate Fraction of Inspir ed Oxygen Hydration adequate: Yes Nausea and vomiting: No Pain level: controlled Mental status: Baseline
== END 2024-05-09 15:37 | disposition home or self-care (01) ==
LOC: ER 09:01 → OR 12:49
PROVIDERS: Emergency Provider Emergency Medicine; Visit Provider Obstetrics & Gynecology
PROC: (CPT 59812; principal; 2024-05-09 14:00)
DX: O03.4 Incomplete spontaneous abortion without complication (principal)
CPT/HCPCS: 59812; 36415; 84702; 85014; 85018; 85025; 86850; 86900; 88305; 96372; J0330; J1100; J1885; J2270; J2405; J2704; J3010; J7030

== ENCOUNTER → 2024-05-19 09:04 | Outpatient (BNVA) | payer MEDICAID, SELFPAY | PROVIDERS: Visit Provider Obstetrics & Gynecology | DX: R42 Dizziness and giddiness (principal) | CPT/HCPCS: 81025; 85025 ==

== ENCOUNTER → 2025-03-03 14:13 | Outpatient (BNVA) | payer MEDICAID, SELFPAY | PROVIDERS: Visit Provider Nurse Practitioner Women's Health | DX: N91.2 Amenorrhea, unspecified (principal); Z32.01 Encounter for pregnancy test, result positive | CPT/HCPCS: 81025; 84702; 86850; 86900 ==

== ENCOUNTER → 2025-03-07 15:22 | Outpatient (BNVA) | payer MEDICAID, SELFPAY | PROVIDERS: Visit Provider Nurse Practitioner Women's Health | DX: O26.891 Other specified pregnancy related conditions, first trimester (principal); Z3A.12 12 weeks gestation of pregnancy | CPT/HCPCS: 76801; 80307; 85025; 86592; 86762; 86803; 86850; 86900; 87086; 87340; 87491; 87591; 87661; 87806 ==

== ENCOUNTER 2025-08-28 04:30 | Inpatient (IN) | payer MEDICAID, SELFPAY ==
[2025-08-28] VITALS (22 sets, daily range): BP systolic 123–169; BP diastolic 65–95; PULSE 67–108; TEMP 35.4; O2SAT 94; BMI 37.7
[2025-08-28] MEDS: oxytocin 30 UNIT/500 ML BAG 600 UNIT IV (05:07)
--- NOTE | 2025-08-28 05:15 | PM.OBGYHP ---
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 Patient was noted to be significantly dilated upon presentation. Soon after arrival the patient delivered precipitously a viable infant female. Upon my arrival the was laying in the warmer and transitioning fairly well. Placenta was still in place. Placenta was delivered soon after. Uterus was firm after delivery of the placenta. Review of the perineum did not demonstrate any significant tears. Review of records did not demonstrate any significant concerns throughout . Labs Blood type OB HPI: B (+) positive GBS: Negative Review of Systems Const: Denies: fever(s) Card: Denies: chest pain Resp: Denies: dyspnea GI: Denies: nausea, vomiting, diarrhea or constipation Neuro: Denies: headache(s) Psych: Denies: anxiety or depression Medications/Allergies Home Medications ?Medication ?Instructions ?Recorded ?Confirmed ?Last Taken ?Type No Known Home Medications 03/03/25 03/31/25 Unknown History Allergies Allergy/AdvReac Type Severity Reaction Status Date / Time No Known Allergies Allergy Verified 03/31/25 07:31 PFSH BLUEPRINT TRACER PFSH: Medical History (Updated 08/28/25 @ 05:20 by Jasson Knox MD) Incomplete spontaneous Missed Vaginal bleeding No pertinent past medical history neghx: htn,dm,thyroid,dvt/pe PCP: None Surgical History No pertinent past surgical history Family History Denies family history of Colon cancer Ovarian cancer Diabetes Heart disease Hyperlipidemia Breast cancer Hypertension Uterine cancer Thyroid disease Stroke Social History Smoking and tobacco/nicotine status: never used tobacco/nicotine History History History 6 Term 4 0 Miscarriages/Ectopic 1 Living Children 4 Vitals/I&O/Wt Last Vital Signs Temp 95.7 F L 08/28/25 04:37 Pulse 102 H 08/28/25 04:37 BP 137/95 08/28/25 04:37 Weight last 48 hrs Weight 96.615 kg Physical Exam Narrative: General: pale, awake, alert, appropriate VS stable Lungs: clear Cor: RRR Abd: soft, nontender Perineum: Intact Ext: normal Results Labs OB ([facility]): Blood Type B Positive 03/07/25 Antibody Screen Negative 03/07/25 Hct, (36-47) 33.3 % L 03/07/25 Hgb, (11.27-16.99) 11.30 g/dL 03/07/25 Rho(D) Type Rh positive 03/07/25 Plt Count, (157-399) 276 10^3/cmm 03/07/25 Hep Bs Antigen, (Nonreactive) Non-reactive 03/07/25 Hepatitis C Antibody, (Nonreactive) Non-reactive 03/07/25 Rubella IgG Antibody, (0.0-10.0) 165.6 IU/mL H 03/07/25 RPR, (Nonreactive) Nonreactive 03/07/25 HIV 1&2 Ab & HIV 1 Ag, (Non-Reactiv) Non-reactive 03/07/25 Ser , Semi-Qnt 06295.00 mIU/mL 03/03/25 HCG, Qual, (Negative) Positive H 03/03/25 Urine Opiates Screen, (Negative) Negative ng/mL 03/07/25 Ur Barbiturates Screen, (Negative) Negative ng/mL 03/07/25 Ur Phencyclidine Scrn, (Negative) Negative ng/mL 03/07/25 Ur Amphetamines Screen, (Negative) Negative ng/mL 03/07/25 U Benzodiazepines Scrn, (Negative) Negative ng/mL 03/07/25 Urine Cocaine Screen, (Negative) Negative ng/mL 03/07/25 U Marijuana (THC) Screen, (Negative) Positive ng/mL H 03/07/25 Micro Urine Specimen 03/07/25 A&P Assessment and plan 1. Spontaneous vaginal delivery: Precipitous delivery occurred without significant complication. No significant concerns on exam. Proceed with routine care. PDMP PDMP Reviewed: Not Reviewed Attestations Medical Necessity Statement*: Patient admitted for labor and spontaneous vaginal delivery. Anticipate 1 midnight stay. Coding Level of Care Code Acute Code for Chg Fwd Diagnoses Spontaneous vaginal delivery O80
[2025-08-28 06:48] LABS: Hematocrit 30.5 % (36-47); Hemoglobin 9.90 g/dL (11.27-16.99); Mean Corpuscular HGB Conc 32.5 g/dL (30-55); Mean Corpuscular Hemoglobin 27.7 pg (27-33); Mean Corpuscular Volume 85.2 fl (85-98); Nucleated Red Blood Cells % 0.3 %; Platelet Count 309 10^3/cmm (157-399); Red Blood Count 3.58 10^6/uL (3.85-5.65); White Blood Count 14.90 10^3/uL (3.29-11.43)
--- NOTE | 2025-08-28 07:44 | PC.NURSE ---
SVE 0430 5cm 75% -3 station SANDOVAL3 requested someone call Dr Simms for admission and bring IV supplies to bedside. Patient standing at bedside verbalizing that she can't sit anymore and I feel the ring of fire. SVE 0444 7cm 80% -2 station Attempted to use wheelchair to transfer patient to LDRP room. Patient attempts to sit in wheelchair and then states no no no, I can't do this, she's coming. Patient then back on triage [facility]. 0453 SROM occurs, clear fluid. 0454 Baby delivers in HOA position. Nuchal x1. Moderate bleeding noted initially. CYNTHIA requested baby to warmer for suctioning and SpO2 assessment due to color and tone. Umbilical cord clamped by ASIA and cut by ЕЛЕНА, baby taken to radiant warmer at bedside with Mariza. Dr Knox at bedside at 0506 Placenta delivered at 0507, minimal bleeding noted.
[2025-08-28 17:03] LABS: Hematocrit 28.8 % (36-47); Hemoglobin 9.10 g/dL (11.27-16.99); Mean Corpuscular HGB Conc 31.6 g/dL (30-55); Mean Corpuscular Hemoglobin 27.5 pg (27-33); Mean Corpuscular Volume 87.0 fl (85-98); Platelet Count 303 10^3/cmm (157-399); Red Blood Count 3.31 10^6/uL (3.85-5.65); White Blood Count 16.20 10^3/uL (3.29-11.43)
[2025-08-29] VITALS (34 sets, daily range): BP systolic 121–160; BP diastolic 56–86; PULSE 65–101; RESP 16–18; TEMP 36.2–36.6; O2SAT 90–100
--- NOTE | 2025-08-29 05:52 | ANES.PREANE2 ---
Pre-Anesthetic Assessment Height/Weight: Height 5 ft 3 in Weight 213 lb Temp Pulse BP Pulse Ox O2 Del Method 95.7 F L 71 139/86 94 Room Air 08/28/25 04:37 08/29/25 05:47 08/29/25 05:47 08/28/25 10:34 08/28/25 04:20 Preop Diagnosis: tubal ligation Was Beta Gianfranco taken within 24 hours: N/A Was Clonidine taken within 24 hours: N/A Social Tobacco and No alcohol Exam alert, oriented x 3, clear to auscultation bilaterally and regular rate & rhythm Airway Submandibular: within normal limits Cervical ROM: within normal limits Mallampati: Class II Dentition: full Anesthetic Plan ASA status: 2 Anesthesia: General Other: No prior issues with anesthesia NPO since yesterday evening Patient had a very quick emergency delivery in triage. No time for epidural Labs reviewed from 08/28/2025, hemoglobin 9.1, WBC 16.2 Current smoker Plan for GETA Medications/Allergies Home Medications ?Medication ?Instructions ?Recorded ?Confirmed ?Last Taken ?Type No Known Home Medications 03/03/25 03/31/25 Unknown History Allergies Allergy/AdvReac Type Severity Reaction Status Date / Time No Known Allergies Allergy Verified 03/31/25 07:31 Current Medications Generic Name Dose Route Start Last Admin Trade Name Luis Fq PRN Reason Stop Dose Admin Acetaminophen 650 mg 08/28/25 04:35 08/28/25 07:56 Acetaminophen 325 Mg Tablet PO 650 mg Q6H PRN Administration Mild pain or temp > 100.4 Docusate Sodium 100 mg 08/28/25 17:00 08/28/25 16:27 Docusate Sodium 100 Mg Capsule PO 100 mg BID NUVIA Administration Ibuprofen 800 mg 08/28/25 08:47 08/28/25 20:41 Ibuprofen 800 Mg Tablet PO 800 mg TID NUVIA Administration PFSH Anesthesia Medical History (Updated 08/28/25 @ 05:20 by Jasson Knox MD) Incomplete spontaneous Missed Vaginal bleeding No pertinent past medical history neghx: htn,dm,thyroid,dvt/pe PCP: None Surgical History No pertinent past surgical history Family History Denies family history of Colon cancer Ovarian cancer Diabetes Heart disease Hyperlipidemia Breast cancer Hypertension Uterine cancer Thyroid disease Stroke Social History Smoking and tobacco/nicotine status: never used tobacco/nicotine Female Reproductive History : 5 Data Anesthesia 08/28/25 16:55 Short CBC 08/28/25 08/28/25 Range/Units 06:00 16:55 WBC 14.90 H 16.20 H (3.29-11.43) 10^3/uL Hgb 9.90 L 9.10 L (11.27-16.99) g/dL Hct 30.5 L 28.8 L (36-47) % MCV 85.2 87.0 (85-98) fl Plt Count 309 303 (157-399) 10^3/cmm Neut % (Auto) 78.0 % Neut # (Auto) 11.62 H (1.8-7.7) 10^3/uL Blood Bank 08/28/25 04:45 Blood Type B Positive Rho(D) Type Rh positive Antibody Screen Negative
[2025-08-29] MEDS: metoclopramide 5 mg/mL SDV 2 mL 10 MG IVP (06:45)
[2025-08-29] MEDS: lidocaine-epi 1% 20 mL INJ INJECTION (08:00)
--- NOTE | 2025-08-29 08:14 | P.OP_ITS ---
Operative Report Date of procedure: August 29, 2025 Pre-op diagnosis: Undesired fertility Post-op diagnosis: Undesired fertility Procedure done: bilateral tubal ligation Pathology: Segments of right and left fallopian tubes Surgeon: Rosemary Simms MD Estimated blood loss (mL): 2 IV fluids (mL): 1,500 Complications: None Procedure: After informed consent the patient was taken to the OR where general anesthesia was administered. She was prepped and draped in normal sterile fashion in dorsal supine position. A curvilinear incision was made under the umbilicus sharply using a 10 blade. The incision was then carried through bluntly to the underlying layer of fascia using a hemostat. The fascia was grasped with Allis clamps. The fascia was entered sharply using the Mayos. The peritoneum was then entered bluntly using a hemostat. The incision site was manually stretched. The left fallopian tube was grasped with a Bernard and brought into the operative field. Fimbria were identified. A distal portion of the tube was ligated and excised. A segment of the tube was sent to pathology. Tubal ostia were visualized. The cut portions of the tube were coagulated using the Bovie. The cut portions of the tube were then returned to the abdomen. The right fallopian tube was then grasped with a Louisa and brought into the operative field. Fimbria were visualized. A midportion of the tube was ligated and excised. Tubal ostia were visualized. Segment of the tube was sent to pathology. The cut portions of the tube were coagulated using the Bovie. The cut portions of the tube were then returned to the abdomen. The fascia was reapproximated using 0 Vicryl in a running fashion. The skin was then reapprox imated using 4-0 Vicryl in a running fashion. Steri-Strips and a pressure bandage were applied, the patient was awakened in the OR and patient went to recovery in good condition.
--- NOTE | 2025-08-29 08:18 | PM.DCS ---
Discharge Providers Date of Admission: 08/28/25 04:30 Date of Discharge: August 29, 2025 Attending Provider at Admission: Rosemary Simms MD Attending Provider at Discharge: Rosemary Simms MD Diagnoses at Discharge Discharge Diagnosis 1. Spontaneous vaginal delivery: Reason for Visit Reason for Visit: contractions Hospital Course Hospital Course This is a 29-year-old G5 now P5 who had a normal spontaneous vaginal delivery of a viable female . On day #1 the patient underwent bilateral tubal ligation. There were no complications of the procedure. The patient was ambulating and tolerating a regular diet. She was discharged home. Physical Exam Narrative: Alert and oriented, heart regular rate and rhythm, lungs clear to auscultation bilaterally, abdomen is soft and nontender, fundus is firm, extremities have 1+ edema but no calf tenderness Discharge Data Studies Completed and Pending Laboratory Results WBC 16.20 10^3/uL (3.29-11.43) H 08/28/25 16:55 RBC 3.31 10^6/uL (3.85-5.65) L 08/28/25 16:55 Hgb 9.10 g/dL (11.27-16.99) L 08/28/25 16:55 Hct 28.8 % (36-47) L 08/28/25 16:55 MCV 87.0 fl (85-98) 08/28/25 16:55 MCH 27.5 pg (27-33) 08/28/25 16:55 MCHC 31.6 g/dL (30-55) 08/28/25 16:55 RDW 14.8 % (12.1-15.1) 08/28/25 16:55 Plt Count 303 10^3/cmm (157-399) 08/28/25 16:55 MPV 12.3 fL (7.4-10.4) H 08/28/25 16:55 Neut % (Auto) 78.0 % 08/28/25 06:00 Lymph % (Auto) 17.1 % 08/28/25 06:00 Hartley % (Auto) 3.5 % 08/28/25 06:00 Eos % (Auto) 0.6 % 08/28/25 06:00 Baso % (Auto) 0.3 % 08/28/25 06:00 Neut # (Auto) 11.62 10^3/uL (1.8-7.7) H 08/28/25 06:00 Lymph # (Auto) 2.6 10^3/uL (0.8-4.8) 08/28/25 06:00 Hartley # (Auto) 0.5 10^3/uL (0.2-0.9) 08/28/25 06:00 Eos # (Auto) 0.1 10^3/uL (0.0-0.8) 08/28/25 06:00 Baso # (Auto) 0.1 10^3/uL (0.0-0.1) 08/28/25 06:00 Nucleated RBC % (auto) 0.3 % 08/28/25 06:00 Nucleated RBCs # 0.0 /100WBC 08/28/25 06:00 Blood Type B Positive 08/28/25 04:45 Rho(D) Type Rh positive 08/28/25 04:45 Antibody Screen Negative 08/28/25 04:45 Vitals Last Vital Signs Temp 95.7 F L 08/28/25 04:37 Pulse 65 08/29/25 06:47 BP 137/78 08/29/25 06:47 Pulse Ox 94 08/28/25 10:34 O2 Del Method Room Air 08/28/25 04:20 Discharge Plan Discharge Patient Disposition: Home Condition: Stable Prescriptions: New ibuprofen 800 mg Tablet 800 mg PO TID PRN (Reason: Abdominal Discomfort) Qty: 30 0RF hydrocodone-acetaminophen 5-325 mg tablet 1 tab PO Q4H PRN (Reason: pain) Qty: 7 0RF No Action No Known Home Medications Discharge Order = DC NOW: Discharge Order (Routine); Ordered 08/29/25 Ordered By: Rosemary Simms Referrals: Rosemary Simms MD [Physician, Family Practice] - 09/05/25 1:00 pm Discharge Diet: Usual diet Discharge Activity: Limit activity as instructed Patient Instructions: Hydrocodone/Acetaminophen (By mouth), Ibuprofen (By mouth), Bleeding (DC), Care For Your Absorbable Stitches (DC), Preeclampsia and Eclampsia After Delivery (GEN), Tubal Ligation (DC), OB Care at Home, Opioid Safety, Patient Portal & Luis Instructions, Abnormal Bleeding, Depression Activity Restrictions/Additional Instructions: No lifting greater than 10 pounds for 2 weeks. Nothing per vagina for 6 weeks. Discharge Attestations Time Spent in Discharge Care*: less than 30 min Quality Metrics Clinical Quality Measures [ No reported AMI, CVA or VTE this stay] Coding Level of Care Code Acute Code for Chg Fwd Diagnoses Spontaneous vaginal delivery O80
[2025-08-29] MEDS: PRENATAL VIT NO.130/IRON/FOLIC 1 EACH TABLET PO (09:01)
[2025-08-29] MEDS: HYDROcodone-acetaminophen 5-325 mg Tablet 1 TAB PO (09:01)
--- NOTE | 2025-08-30 06:46 | PC.NURSE ---
Calls made to Dr. Simms to notify of impending delivery of patient currently in triage, calls placed at [phone], [phone], [phone], [phone]. Dr. Knox called at [phone] after no response from Dr. Simms and he let this RN know he is on his way for delivery.
== END 2025-08-29 12:23 | disposition home or self-care (01) | DRG 541 ==
LOC: OBGYN 04:30 → OPOB 05:46 → OBGYN 05:46
PROVIDERS: Admitting Provider Family Medicine; Visit Provider Family Medicine
PROC: 0UB73ZZ Excision of Bilateral Fallopian Tubes, Percutaneous Approach (ICD-10-PCS; CPT 58605; principal; 2025-08-29 07:00)
DX: O62.3 Precipitate labor (principal); Z3A.38 38 weeks gestation of pregnancy; Z37.0 Single live birth; Z30.2 Encounter for sterilization
CPT/HCPCS: 36415; 59409; 85025; 85027; 86850; 86900; 88302; 99211; J0330; J1100; J1885; J2250; J2405; J2590; J2704; J2765; J3010; J3490; J7030; J9999